=== PATIENT | male | born 1985 | race Caucasian/White ===

== ENCOUNTER 2016-12-15 12:00 | Emergency (ER) | payer OTHER ==
--- NOTE | 2016-12-15 12:09 | ER Document Report ---
ED General - General Stated Complaint: LEFT LEG INJURY Mode of Arrival: Ambulatory Information source: Patient Notes: 31-year-old male presents with complaints of left leg entrapment by a tree branch while 15 feet in a tree. Patient denies any other injuries denies any significant pain. Patient notes it feels tingly. - HPI Onset: Just prior to arrival Onset/Duration: Sudden Quality of pain: Achy Severity: Mild Pain Level: Denies Associated symptoms: Other Exacerbated by: Movement Relieved by: Denies Similar symptoms previously: No Recently seen / treated by doctor: No - Related Data Allergies/Adverse Reactions: No Known Allergies Allergy (Unverified 12/15/16 12:37) Past Medical History - Social History Smoking Status: Never Smoker Cigarette use (# per day): No Chew tobacco use (# tins/day): No Smoking Education Provided: No Family History: Reviewed & Not Pertinent Review of Systems - Review of Systems Notes: REVIEW OF SYSTEMS: CONSTITUTIONAL : Denies fever, chills, or sweats. Denies recent illness. EENT: Denies eye, ear, throat, or mouth pain or symptoms. Denies nasal or sinus congestion or discharge. Denies throat, tongue, or mouth swelling or difficulty swallowing. CARDIOVASCULAR: Denies chest pain. Denies palpitations or racing or irregular heart beat. Denies ankle edema. RESPIRATORY: Denies cough, cold, or chest congestion. Denies shortness of breath, difficulty breathing, or wheezing. GASTROINTESTINAL: Denies abdominal pain or distention. Denies nausea, vomiting , or diarrhea. Denies blood in vomitus, stools, or per rectum. Denies black, tarry stools. Denies constipation. GENITOURINARY: Denies difficulty urinating, painful urination, burning, frequency, blood in urine, or discharge. MUSCULOSKELETAL: Denies back or neck pain or stiffness. Denies joint pain or swelling. SKIN: Denies rash, lesions or sores. HEMATOLOGIC : Denies easy bruising or bleeding. LYMPHATIC: Denies swollen, enlarged glands. NEUROLOGICAL: Left leg numbness PSYCHIATRIC: Denies anxiety or stress. Denies depression, suicidal ideation, or homicidal ideation. ALL OTHER SYSTEMS REVIEWED AND NEGATIVE. Dictation was performed using [employer] voice recognition software PHYSICAL EXAMINATION: GENERAL: Well-appearing, well-nourished and in no acute distress. HEAD: Atraumatic, normocephalic. EYES: Pupils equal round and reactive to light, extraocular movements intact, sclera anicteric, conjunctiva are normal. ENT: Nares patent, oropharynx clear without exudates. Moist mucous membranes. NECK: Normal range of motion, supple without lymphadenopathy LUNGS: Breath sounds clear to auscultation bilaterally and equal. No wheezes rales or rhonchi. HEART: Regular rate and rhythm without murmurs ABDOMEN: Soft, nontender, nondistended abdomen. No guarding, no rebound. No masses appreciated. Musculoskeletal: Normal range of motion, no pitting or edema. No cyanosis. NEUROLOGICAL: Mild left foot paresthesia PSYCH: Normal mood, normal affect. SKIN: Indentation noted of the left anterior arriaga, superficial abrasion in a vertical fashion of the anterior arriaga Physical Exam - Vital signs Vitals: Temp Pulse Resp BP Pulse Ox 98.1 F 63 18 136/81 H 97 12/15/16 12:21 12/15/16 12:21 12/15/16 12:21 12/15/16 12:21 12/15/16 12:21 Course - Re-evaluation Re-evalutation: 12/15/16 12:09 X-ray lab work pending. Patient otherwise well-appearing. Dr. Crowder has been consulted Patient refuses pain medication 12/15/16 13:36 X-ray noted no significant abnormality, orthopedics has evaluated patient has very low suspicion for any life-threatening issues. Patient stable for discharge is in no pain at this time I will have him follow-up with his primary care physician, wound care has been provided Tetanus has been updated After performing a Medical Screening Examination, I estimate there is LOW risk for INTRACRANIAL HEMORRHAGE, UNSTABLE SPINE FRACTURE, CENTRAL CORD SYNDROME, CAUDA EQUINA, THORACIC AORTIC DISSECTION, PNEUMOTHORAX, PERFORATED BOWEL, RUPTURED ABDOMINAL AORTIC ANEURYSM, ACUTE TENDON RUPTURE, COMPARTMENT SYNDROME, or OPEN FRACTURE, thus I consider the discharge disposition reasonable. Also, there is no evidence or peritonitis, sepsis, or toxicity. The patient and I have discussed the diagnosis and risks, and we agree with discharging home to follow-up with their primary doctor with the understanding that symptoms and presentations can change. We also discussed returning to the Emergency Department immediately if new or worsening symptoms occur. We have discussed the symptoms which are most concerning (e.g., bloody stool, fever, changing or worsening pain, vomiting) that necessitate immediate return. - Vital Signs Vital signs: Temp Pulse Resp BP Pulse Ox 98.1 F 63 18 136/81 H 97 12/15/16 12:21 12/15/16 12:21 12/15/16 12:21 12/15/16 12:21 12/15/16 12:21 - Laboratory Result Diagrams: 12/15/16 12:12 12/15/16 12:12 Laboratory results interpreted by me: 12/15/16 12/15/16 12:12 12:12 WBC 3.1 L Absolute Neutrophils 1.4 L Chloride 108 H Calcium 10.3 H - Diagnostic Test Radiology reviewed: Image reviewed, Reports reviewed Discharge - Discharge Clinical Impression: abrasion left anterior arriaga Contusion of left lower leg Qualifiers: Encounter type: initial encounter Qualified Code(s): S80.12XA - Contusion of left lower leg, initial encounter Condition: Stable Disposition: HOME, SELF-CARE Instructions: Contusion ([facility]) Additional Instructions: Follow up with your physician tomorrow for further care or return to the ED IMMEDIATELY if symptoms worsen or new concerns occur
[2016-12-15] MEDS ORDERED: ACETAMINOPHEN 325 MG TABLET PO ONE (12:37)
[2016-12-15 12:44] LABS: ABSOLUTE LYMPHOCYTES (AUTO) 1.4 10^3/uL (0.5-4.7); ABSOLUTE MONOCYTES (AUTO) 0.4 10^3/uL (0.1-1.4); ABSOLUTE NEUT (AUTO) 1.4 10^3/uL (1.7-8.2); BASOPHILS % (AUTO) 0.6 % (0-2); EOSINOPHILS % (AUTO) 1.3 % (0-6); HEMATOCRIT 39.2 % (37.9-51.0); HEMOGLOBIN 13.5 g/dL (13.5-17.0); HGB HCT DIFFERENCE 1.3; LYMPHOCYTES % (AUTO) 43.2 % (13-45); MEAN CORPUSCULAR HEMOGLOBIN 28.7 pg (27.0-33.4); MEAN CORPUSCULAR HGB CONC 34.5 g/dL (32.0-36.0); MEAN CORPUSCULAR VOLUME 83 fl (80-97); MONOCYTES % (AUTO) 11.6 % (3-13); RED BLOOD COUNT 4.72 10^6/uL (4.35-5.55); RED CELL DISTRIBUTION WIDTH 12.9 % (11.5-14.0); SEGMENTED NEUTROPHILS % (AUTO) 43.3 % (42-78); WHITE BLOOD COUNT 3.1 10^3/uL (4.0-10.5)
[2016-12-15 13:06] LABS: ALANINE AMINOTRANSFERASE 38 U/L (21-72); ALBUMIN 4.1 g/dL (3.5-5.0); ALKALINE PHOSPHATASE 52 U/L (38-126); ANION GAP 12 (5-19); ASPARTATE AMINO TRANSFERASE 22 U/L (17-59); BILIRUBIN,DIRECT 0.2 mg/dL (0.0-0.4); BILIRUBIN,TOTAL 0.6 mg/dL (0.2-1.3); BLOOD UREA NITROGEN 13 mg/dL (7-20); CALCIUM 10.3 mg/dL (8.4-10.2); CARBON DIOXIDE 23 mmol/L (22-30); CHLORIDE 108 mmol/L (98-107); CREATINE KINASE 75 U/L (55-170); CREATININE RESULT 0.75 mg/dL (0.52-1.25); GLUCOSE 87 mg/dL (75-110); POTASSIUM 4.2 mmol/L (3.6-5.0); SODIUM 143.4 mmol/L (137-145); TOTAL PROTEIN 6.9 g/dL (6.3-8.2)
--- NOTE | 2016-12-15 13:11 | EKG REPORT ---
SEVERITY:- NORMAL ECG - SINUS RHYTHM : Confirmed by: Alayna Bates MD 15-Dec-2016 13:10:08
[2016-12-15 13:17] LABS: CREATINE KINASE MB 0.69 ng/mL (<4.55)
[2016-12-15 13:22] LABS: TROPONIN I < 0.012 ng/mL
--- NOTE | 2016-12-15 13:34 | PDOC CONSULTATION ---
Consultation Consult Date: 12/15/16 Consult reason:: Left lower extremity trauma History of Present Illness Admission Date/PCP: The patient's a 31-year-old white male who sustained left lower extremity trauma and will cutting down a tree. Apparently the branch fell and trapped his left lower extremity between the branch and the trunk. Patient was subsequently freed but presents emergency room now with left lower extremity pain. History of Present Illness: FÁTIMA STAFFORD is a 31 year old male Past Medical History Medical History: None Past Surgical History Past Surgical History: Reports: Orthopedic Surgery - L knee Social History Information Source: Patient Lives with: Family Smoking Status: Never Smoker Family History Family History: Reviewed & Not Pertinent Parental Family History Reviewed: No Children Family History Reviewed: No Sibling(s) Family History Reviewed.: No Medication/Allergy Allergies/Adverse Reactions: No Known Allergies Allergy (Unverified 12/15/16 12:37) Review of Systems All systems: as per [facility] Physical Exam Vital Signs: Temp Pulse Resp BP Pulse Ox 36.7 C 63 18 136/81 H 97 12/15/16 12:21 12/15/16 12:21 12/15/16 12:21 12/15/16 12:21 12/15/16 12:21 Intake & Output 12/14/16 12/15/16 12/16/16 06:59 06:59 06:59 Weight 97.522 kg Physical Exam: The patient's an overweight middle-aged white male lying on the ER gurney. He is accompanied by his and 2 children. General appearance: PRESENT: no acute distress Head exam: PRESENT: normocephalic Eye exam: PRESENT: EOMI Respiratory exam: PRESENT: unlabored Cardiovascular exam: PRESENT: RRR Pulses: PRESENT: +1 pedal pulses bilateral Vascular exam: PRESENT: normal capillary refill GI/Abdominal exam: PRESENT: soft Rectal exam: PRESENT: deferred Extremities exam: PRESENT: other - Left lower extremity is held out in extension. There is some abrasion over the tibial crest beginning in the proximal third and extending to the middle and distal third junction. This is superficial and extends only into the dermis. There is no surrounding erythema. Anterior, lateral, and posterior compartments are soft. Distal neurovascular examinations intact. Neurological exam: PRESENT: alert, awake, oriented to person, oriented to place , oriented to time, oriented to situation, CN II-XII grossly intact. ABSENT: motor sensory deficit Psychiatric exam: PRESENT: appropriate affect, normal mood. ABSENT: homicidal ideation, suicidal ideation Skin exam: PRESENT: dry, intact, warm. ABSENT: cyanosis, rash Results Laboratory Results: 12/15/16 12:12 12/15/16 12:12 12/15/16 12/15/16 12:12 12:12 WBC 3.1 L RBC 4.72 Hgb 13.5 Hct 39.2 MCV 83 MCH 28.7 MCHC 34.5 RDW 12.9 Plt Count 172 Seg Neutrophils % 43.3 Lymphocytes % 43.2 Monocytes % 11.6 Eosinophils % 1.3 Basophils % 0.6 Absolute Neutrophils 1.4 L Absolute Lymphocytes 1.4 Absolute Monocytes 0.4 Absolute Eosinophils 0.0 Absolute Basophils 0.0 Sodium 143.4 Potassium 4.2 Chloride 108 H Carbon Dioxide 23 Anion Gap 12 BUN 13 Creatinine 0.75 Est GFR ( Amer) > 60 Est GFR (Non-Af Amer) > 60 Glucose 87 Calcium 10.3 H Total Bilirubin 0.6 AST 22 ALT 38 Alkaline Phosphatase 52 Total Protein 6.9 Albumin 4.1 12/15/16 12/15/16 12:12 12:12 Creatine Kinase 75 CK-MB (CK-2) 0.69 Troponin I < 0.012 Impressions: Tibia/Fibula X-Ray 12/15/16 12:08 IMPRESSION: NEGATIVE STUDY OF THE LEFT TIBIA AND FIBULA. NO RADIOGRAPHIC EVIDENCE OF ACUTE INJURY. Status: Imported from PACS Assessment & Plan - Diagnosis (1) Contusion of left lower leg Is this a current diagnosis for this admission?: YesPlan: 31-year-old white male with contusion to the left lower extremity while cutting down a tree. My clinical suspicion for compartment syndrome is very low and I don't think it merits compartment pressure monitoring at this point. Patient can return to full activity level and can see me as an outpatient if needed - Time Time Spent: 50 to 70 Minutes Medications reviewed and adjusted accordingly: No Anticipated discharge: Home
[2016-12-15] MEDS ORDERED: DIPH/PERTUSS(ACELL)/TETANUS VAC/PF 0.5 ML SYR (>=10YO) IM ONE (13:35)
[2016-12-15 14:36] VITALS: BP 126/69
== END 2016-12-15 14:20 | disposition home or self-care (01) ==
LOC: ER 12:00
DX: S80.812A Abrasion, left lower leg, initial encounter (principal); S80.12XA Contusion of left lower leg, initial encounter; R20.0 Anesthesia of skin; W22.8XXA Striking against or struck by other objects, initial encounter
CPT/HCPCS: 36415; 80053; 82550; 82553; 84484; 85025; 90471; 90715; 93005; 93010; 99284